=== PATIENT | female | born 1990 | race Caucasian/White ===

== ENCOUNTER 2017-11-26 18:48 | Emergency (ER) | payer MEDICAID ==
[~2017-11-26] VITALS: Ht 152.4 cm; Wt 48.8 kg
[2017-11-26 18:57] VITALS: Ht 152.4 cm; Wt 48.8 kg
[2017-11-26 21:23] VITALS: BP 122/71
== END 2017-11-26 21:23 | disposition home or self-care (01) ==
LOC: ED 18:48
DX: H10.31 Unspecified acute conjunctivitis, right eye (principal)